=== PATIENT | male | born 1995 | race Caucasian/White ===

== ENCOUNTER 2017-05-02 12:57 | Emergency (ER) | payer OTHER ==
[~2017-05-02] VITALS: Ht 190.5 cm; Wt 85.7 kg
[~2017-05-02 12:57] MED LIST: AURALGAN14.8 ML LEFT EAR; BENADRYL25 MG PO; CIPRO HC OTIC S10 ML LEFT EAR; FLEXERIL5 MG PO; FLONASE16 G1 BOTH NARES; KEFLEX500 MG PO; PEPCID20 MG PO; PERCOCET 5/31 TABLET PO; PREDNISONE20 MG PO; ZITHROMAX Z-PA250 MG PO
[2017-05-02 14:48] VITALS: BP 147/99
== END 2017-05-02 14:50 | disposition home or self-care (01) ==
LOC: EME 12:57
DX: S00.81XA Abrasion of other part of head, initial encounter (principal); R04.0 Epistaxis; Y04.8XXA Assault by other bodily force, initial encounter; Y99.0 Civilian activity done for income or pay
CPT/HCPCS: 70160; 99281; 99284

== ENCOUNTER 2017-08-29 12:57 | Emergency (ER) | payer BC ==
[~2017-08-29] VITALS: Ht 190.5 cm; Wt 81.1 kg
[2017-08-29 15:42] VITALS: BP 150/90
== END 2017-08-29 15:48 | disposition home or self-care (01) ==
LOC: EME 12:57
DX: R45.1 Restlessness and agitation (principal); F43.24 Adjustment disorder with disturbance of conduct; Z04.6 Encounter for general psychiatric examination, requested by authority
CPT/HCPCS: 80053; 81003; 85027; 90837; 99281; 99285; G0480

== ENCOUNTER 2017-10-29 18:55 | Inpatient (IN) | payer OTHER ==
[~2017-10-29] VITALS: Ht 190.5 cm; Wt 80.5 kg
[2017-10-29 21:27] LABS: HEMATOCRIT 43.2 % (38.0-50.0); HEMOGLOBIN 14.3 G/DL (12.5-16.6); MCH 30.6 PG (29.0-34.0); MCHC 33.1 G/DL (30.0-36.0); MCV 92.3 FL (86-99); PLATELET COUNT 238 K/uL (156-360); RBC DIS.WIDTH-CV 13.2 % (11.8-14.6); RBC DIS.WIDTH-SD 45.1 % (39-53); RED BLOOD COUNT 4.68 M/uL (4.00-5.50); WHITE BLOOD COUNT 8.3 K/uL (4.1-10.2)
[2017-10-29 21:39] LABS: CHLORIDE 107 mEq/L (99-109); POTASSIUM 4.3 mEq/L (3.7-5.4); SODIUM 141 mEq/L (136-147)
[2017-10-29 21:41] LABS: GLUCOSE 83 mg/dL (70-99)
[2017-10-29 21:44] LABS: GFR ESTIMATE (CALCULATED) > 59 mL/min/ (58.99-99999); SERUM ETHYL ALCOHOL < 10 mg/dL
[2017-10-29 21:45] LABS: UREA NITROGEN (BUN) 15 mg/dL (9-23)
[2017-10-29 22:30] VITALS: BP 123/78
[2017-10-30 07:49] VITALS: BP 125/70
[2017-10-30 13:17] LABS: BENZODIAZEPINES, URINE SCREEN Negative (200 ng/mL)
[2017-10-30 15:55] VITALS: BP 105/52
[2017-10-31 07:30] VITALS: BP 131/62
[2017-10-31 15:07] VITALS: BP 126/72
[2017-11-01 07:44] VITALS: BP 110/58
[2017-11-01 15:24] VITALS: BP 113/56
[2017-11-02 08:00] VITALS: BP 109/59
[2017-11-02 15:39] VITALS: BP 117/70
[2017-11-03 07:45] VITALS: BP 141/67
[2017-11-03 16:12] VITALS: BP 135/81
[2017-11-04 08:01] VITALS: BP 116/55
[2017-11-04 15:51] VITALS: BP 125/69
[2017-11-05 08:00] VITALS: BP 116/66
[2017-11-05 15:49] VITALS: BP 128/81
[2017-11-06 07:36] VITALS: BP 84/43
[2017-11-06 15:50] VITALS: BP 139/81
[2017-11-07 07:54] VITALS: BP 132/67
[2017-11-07 15:45] VITALS: BP 111/57
[2017-11-08 07:27] VITALS: BP 98/48
[2017-11-08 15:59] VITALS: BP 122/80
[2017-11-09 08:16] VITALS: BP 101/58
[2017-11-09 15:55] VITALS: BP 99/59
[2017-11-10 07:57] VITALS: BP 120/58
[2017-11-10 15:44] VITALS: BP 117/63
[2017-11-11 07:59] VITALS: BP 101/59
[2017-11-11 15:38] VITALS: BP 98/50
[2017-11-12 07:45] VITALS: BP 97/51
[2017-11-12 15:38] VITALS: BP 114/70
[2017-11-13 08:14] VITALS: BP 101/56
[2017-11-13 16:23] VITALS: BP 113/73
[2017-11-14 07:27] VITALS: BP 99/57
[2017-11-14 15:15] VITALS: BP 118/69
[2017-11-15 08:03] VITALS: BP 115/55
[2017-11-15 16:41] VITALS: BP 124/77
[2017-11-16 09:17] VITALS: BP 109/51
[2017-11-17 09:58] VITALS: BP 96/50
[2017-11-17 15:38] VITALS: BP 93/53
[2017-11-18 08:28] VITALS: BP 91/50
[2017-11-18 15:33] VITALS: BP 117/66
[2017-11-19 08:24] VITALS: BP 91/49
[2017-11-19 15:44] VITALS: BP 115/58
[2017-11-20 15:47] VITALS: BP 110/61
[2017-11-21 07:48] VITALS: BP 92/55
[2017-11-21 16:00] VITALS: BP 113/64
[2017-11-22 07:49] VITALS: BP 84/47
[2017-11-22 15:54] VITALS: BP 106/58
[2017-11-23 09:48] VITALS: BP 83/47
[2017-11-23] MEDS ORDERED: ARIPIPRAZOLE10 MG PO (11:38)
== END 2017-11-23 12:38 | disposition home or self-care (01) | DRG 885 ==
LOC: EME 18:55 → EDOF 20:23 → 1WEST 20:23 → ENRESERV 21:53 → 1WEST 22:17
PROVIDERS: Emergency Medicine; Psychiatry & Neurology Psychiatry
DX: F25.0 Schizoaffective disorder, bipolar type (principal); R45.851 Suicidal ideations; F17.220 Nicotine dependence, chewing tobacco, uncomplicated; R45.850 Homicidal ideations; Z56.0 Unemployment, unspecified; Z91.14 Patient's other noncompliance with medication regimen; R01.1 Cardiac murmur, unspecified; Z91.19 Patient's noncompliance with other medical treatment and regimen; F41.9 Anxiety disorder, unspecified; R45.4 Irritability and anger; Z78.1 Physical restraint status; Z59.0 Homelessness; Z81.8 Family history of other mental and behavioral disorders; F22 Delusional disorders; F60.0 Paranoid personality disorder
CPT/HCPCS: 80048; 80306 90; 81003; 85027; 90837; 97150 GO; 97166 GO; 97168 GO; 99281; 99285; G0480; J0515; J1200; J1630; J2060

== ENCOUNTER 2018-03-16 11:32 | Emergency (ER) | payer OTHER ==
[~2018-03-16] VITALS: Ht 188 cm; Wt 81.0 kg
[~2018-03-16 11:32] MED LIST changes: +ARIPIPRAZOLE10 MG PO
[2018-03-16 12:41] LABS: APPEARANCE CLEAR ((CLEAR)); BILIRUBIN NEGATIVE; BLOOD NEGATIVE; COLOR YELLOW ((YELLOW)); GLUCOSE (STRIP) NEGATIVE; KETONES NEGATIVE; LEUKOCYTES NEGATIVE; NITRITE NEGATIVE; PROTEIN (STRIP) NEGATIVE; SPECIFIC GRAVITY 1.014 (1.000-1.030); UCUL ADDED? NO; UROBILINOGEN 0.2 MG/DL (0.2-1.0)
[2018-03-16 12:55] LABS: AMPHETAMINE NEGATIVE (500 ng/mL); BARBITURATES NEGATIVE (200 ng/mL); BENZODIAZEPINES NEGATIVE (150 ng/mL); BUPRENORPHINE NEGATIVE (10 ng/mL); COCAINE NEGATIVE (150 ng/mL); METHADONE NEGATIVE (200 ng/mL); METHAMPHETAMINE NEGATIVE (500 ng/mL); OPIATES (MORPHINE) NEGATIVE (100 ng/mL); OXYCODONE NEGATIVE (100 ng/mL); PHENCYCLIDINE NEGATIVE (25 ng/mL); PROPOXYPHENE NEGATIVE (300 ng/mL); THC CANNABINOIDS NEGATIVE (50 ng/mL); TRICYCLIC ANTIDEPRESSANTS NEGATIVE (300 ng/mL)
[2018-03-16 12:58] LABS: BASOPHIL (%) 0.4 % (0-1); BASOPHIL COUNT 0.1 K/uL (0-0.1); EOSINOPHIL (%) 0.3 % (0-5); HEMOGLOBIN 16.7 G/DL (12.5-16.6); IMMATURE GRANULOCYTE (%) 0.5 % (0.0-0.7); LYMPHOCYTE (%) 7.7 % (15-42); MCH 31.3 PG (29.0-34.0); MCHC 34.8 G/DL (30.0-36.0); MCV 89.9 FL (86-99); MONOCYTE (%) 4.8 % (3-12); MONOCYTE COUNT 0.6 K/uL (0-0.8); NEUTROPHIL (%) 86.3 % (45-76); PLATELET COUNT 249 K/uL (156-360); RBC DIS.WIDTH-CV 12.3 % (11.8-14.6); RBC DIS.WIDTH-SD 40.4 % (39-53); RED BLOOD COUNT 5.34 M/uL (4.00-5.50); WHITE BLOOD COUNT 12.7 K/uL (4.1-10.2)
[2018-03-16 13:07] LABS: CHLORIDE 108 mEq/L (99-109); POTASSIUM 3.9 mEq/L (3.7-5.4); SODIUM 141 mEq/L (136-147)
[2018-03-16 13:09] LABS: GLUCOSE 109 mg/dL (70-99)
[2018-03-16 13:12] LABS: SERUM ETHYL ALCOHOL < 10 mg/dL
[2018-03-16 13:13] LABS: CREATININE 1.1 mg/dL (0.6-1.3); GFR ESTIMATE (CALCULATED) > 59 mL/min/ (58.99-99999)
[2018-03-16 13:15] LABS: UREA NITROGEN (BUN) 21 mg/dL (9-23)
[2018-03-16 13:16] LABS: ACETAMINOPHEN (TYLENOL) < 10 mcg/mL (10-30); SALICYLATE < 5.0 MG/DL (15-30)
[2018-03-16 15:08] VITALS: BP 131/90
== END 2018-03-16 15:08 | disposition home or self-care (01) ==
LOC: EME 11:32
PROVIDERS: Emergency Medicine
DX: F25.0 Schizoaffective disorder, bipolar type (principal); Z04.6 Encounter for general psychiatric examination, requested by authority
CPT/HCPCS: 80048; 81003; 85025; 90837; 99281; 99285; G0480

== ENCOUNTER 2018-04-19 14:33 | Emergency (ER) | payer OTHER ==
[~2018-04-19] VITALS: Ht 190.5 cm; Wt 63.6 kg
[2018-04-19 16:55] LABS: APPEARANCE CLEAR ((CLEAR)); BILIRUBIN NEGATIVE; BLOOD NEGATIVE; COLOR YELLOW ((YELLOW)); GLUCOSE (STRIP) NEGATIVE; KETONES 20; LEUKOCYTES NEGATIVE; NITRITE NEGATIVE; PROTEIN (STRIP) 30; SPECIFIC GRAVITY 1.032 (1.000-1.030); UCUL ADDED? NO
[2018-04-19 17:12] LABS: AMPHETAMINE NEGATIVE (500 ng/mL); BARBITURATES NEGATIVE (200 ng/mL); BENZODIAZEPINES NEGATIVE (150 ng/mL); BUPRENORPHINE NEGATIVE (10 ng/mL); COCAINE NEGATIVE (150 ng/mL); METHADONE NEGATIVE (200 ng/mL); METHAMPHETAMINE NEGATIVE (500 ng/mL); OPIATES (MORPHINE) NEGATIVE (100 ng/mL); OXYCODONE NEGATIVE (100 ng/mL); PHENCYCLIDINE NEGATIVE (25 ng/mL); PROPOXYPHENE NEGATIVE (300 ng/mL); THC CANNABINOIDS NEGATIVE (50 ng/mL); TRICYCLIC ANTIDEPRESSANTS NEGATIVE (300 ng/mL)
[2018-04-19 17:58] LABS: BASOPHIL (%) 0.6 % (0-1); BASOPHIL COUNT 0.1 K/uL (0-0.1); EOSINOPHIL (%) 0.1 % (0-5); HEMATOCRIT 43.7 % (38.0-50.0); HEMOGLOBIN 14.9 G/DL (12.5-16.6); IMMATURE GRANULOCYTE (%) 0.3 % (0.0-0.7); LYMPHOCYTE (%) 8.4 % (15-42); MCH 30.8 PG (29.0-34.0); MCHC 34.1 G/DL (30.0-36.0); MCV 90.3 FL (86-99); MONOCYTE COUNT 0.8 K/uL (0-0.8); NEUTROPHIL (%) 84.6 % (45-76); NEUTROPHIL COUNT 10.5 K/uL (1.8-6.4); PLATELET COUNT 226 K/uL (156-360); RBC DIS.WIDTH-CV 12.6 % (11.8-14.6); RBC DIS.WIDTH-SD 41.5 % (39-53); RED BLOOD COUNT 4.84 M/uL (4.00-5.50); WHITE BLOOD COUNT 12.4 K/uL (4.1-10.2)
[2018-04-19 18:10] LABS: ALBUMIN 4.5 g/dL (3.2-4.8); CHLORIDE 107 mEq/L (99-109); POTASSIUM 4.3 mEq/L (3.7-5.4); SODIUM 142 mEq/L (136-147)
[2018-04-19 18:12] LABS: GLUCOSE 90 mg/dL (70-99)
[2018-04-19 18:13] LABS: TOTAL PROTEIN 7.1 g/dL (6.4-8.3)
[2018-04-19 18:14] LABS: TOTAL BILIRUBIN 1.1 mg/dL (0.0-1.0)
[2018-04-19 18:15] LABS: SERUM ETHYL ALCOHOL < 10 mg/dL
[2018-04-19 18:16] LABS: ALKALINE PHOSPHATASE 75 IU/L (3-129); CREATININE 1.2 mg/dL (0.6-1.3); GFR ESTIMATE (CALCULATED) > 59 mL/min/ (58.99-99999)
[2018-04-19 18:17] LABS: UREA NITROGEN (BUN) 23 mg/dL (9-23)
[2018-04-19 18:18] LABS: AST (GOT) 20 IU/L (2-34)
[2018-04-19 18:19] LABS: ALT (GPT) 17 IU/L (3-49)
[2018-04-20 03:35] VITALS: BP 99/60
== END 2018-04-20 04:10 ==
LOC: EME 14:33
PROVIDERS: Emergency Medicine
DX: F22 Delusional disorders (principal); R44.0 Auditory hallucinations; F30.9 Manic episode, unspecified; F25.0 Schizoaffective disorder, bipolar type; Z59.0 Homelessness
CPT/HCPCS: 80053; 81003; 85025; 90837; 99281; 99285; G0480

== ENCOUNTER 2018-05-04 19:53 | Emergency (ER) | payer OTHER ==
[~2018-05-04] VITALS: Ht 185.4 cm; Wt 78.0 kg
[2018-05-04] MEDS ORDERED: MYCOSTATIN1 APPLICAT TP (21:26)
[2018-05-04 22:00] VITALS: BP 139/88
== END 2018-05-04 22:01 | disposition home or self-care (01) ==
LOC: EME 19:53
DX: F25.0 Schizoaffective disorder, bipolar type (principal); S90.822A Blister (nonthermal), left foot, initial encounter; S90.821A Blister (nonthermal), right foot, initial encounter; X58.XXXA Exposure to other specified factors, initial encounter; Y93.01 Activity, walking, marching and hiking
CPT/HCPCS: 90839; 99281; 99284